=== PATIENT | female | born 1980 | race Caucasian/White ===

== ENCOUNTER → 2020-05-15 | Outpatient (CLI) | payer BC | LOC: RADMAMWWP 16:24 | PROVIDERS: ATTEND Obstetrics & Gynecology | DX: Z53.9 Procedure and treatment not carried out, unspecified reason (principal) ==

== ENCOUNTER → 2021-01-11 | Emergency (ER) | payer BC, OTHER | END | disposition home or self-care (01) | LOC: LABWHC1 14:46 | DX: U07.1 COVID-19 (principal) | CPT/HCPCS: 87635 ==

== ENCOUNTER → 2021-05-12 | Outpatient (CLI) | payer BC ==
[2021-05-12 15:02] LABS: ALT 12 U/L (8-44); AST 16 U/L (13-35); African American GFR (CKD) 100.7 (60.0-200.0); Albumin 4.3 g/dL (3.8-4.9); Albumin/Globulin Ratio 2.07 (1.60-3.17); Alkaline Phosphatase 39 U/L (41-126); BUN/Creat Ratio 21.18 Ratio (12.00-20.00); Carbon Dioxide 21.1 mmol/L (20.0-27.5); Chloride 103 mmol/L (96-109); Chol/HDL Ratio 2.59 Ratio; Globulin 2.1 g/dL (1.6-3.3); Glucose 91 mg/dL (70-110); LDL Cholesterol,Calculated 100.7 mg/dL (0.0-131.0); Non-African American GFR(CKD) 86.9 (60.0-200.0); Potassium 4.1 mmol/L (3.5-5.5); Sodium 135 mmol/L (135-145); Total Protein 6.4 g/dL (6.2-8.2); VLDL Calculation 12.22 mg/dL (5.00-40.00)
== END | disposition home or self-care (01) ==
LOC: LABWHC1 07:48
PROVIDERS: ATTEND Physician Assistant Medical
DX: Z13.228 Encounter for screening for other metabolic disorders (principal); E78.5 Hyperlipidemia, unspecified
CPT/HCPCS: 36415; 80053; 80061; 84443

== ENCOUNTER → 2021-06-18 | Outpatient (CLI) | payer BC ==
--- NOTE | 2021-06-29 11:23 | MM ---
Reason for exam: screening (asymptomatic). Last mammogram was performed 5 years and 10 months ago. History: Family history of breast cancer in 4 paternal aunts and breast cancer in 3 paternal cousins. Took hormonal contraceptives beginning at age 19. Physical Findings: A clinical breast exam by your physician is recommended on an annual basis and results should be correlated with mammographic findings. MG Screening Mammo w CAD Bilateral CC and MLO view(s) were taken. Prior study comparison: August 07, 2015, mammogram, performed at [facility]. The breast tissue is heterogeneously dense. This may lower the sensitivity of mammography. There is no discrete abnormality. ASSESSMENT: Negative, BI-RAD 1 RECOMMENDATION: Routine screening mammogram of both breasts in 1 year. Some consider bilateral ultrasound surveillance in patient with extremely dense fibroglandular tissue.
== END | disposition home or self-care (01) ==
LOC: RADMAMWWP 12:58
PROVIDERS: ATTEND Family Medicine
DX: Z12.31 Encounter for screening mammogram for malignant neoplasm of breast (principal); Z80.3 Family history of malignant neoplasm of breast
CPT/HCPCS: 77067

== ENCOUNTER → 2023-02-16 | Outpatient (CLI) | payer BC ==
[2023-02-16 15:40] LABS: HCT 39.8 % (37.2-46.3); HGB 13.3 g/dL (12.0-15.0); MCH 31.9 pg (27.0-32.0); MCHC 33.4 g/dL (32.0-37.0); MCV 95.4 FL (80.0-97.0); Mean Platelet Volume 11.4 FL (9.5-12.2); NRBC Per 100 WBC 0 X 10*3/uL (0.00-0.01); Platelet Count 211 X 10*3/uL (140-440); RBC 4.17 X 10*6/uL (4.10-5.20); WBC 5.71 X 10*3/uL (4.50-10.00)
== END | disposition home or self-care (01) ==
LOC: LABPAT 12:22
PROVIDERS: ATTEND Urology
DX: N39.3 Stress incontinence (female) (male) (principal); Z01.812 Encounter for preprocedural laboratory examination; N89.3 Dysplasia of vagina, unspecified
CPT/HCPCS: 36415; 85027

== ENCOUNTER 2023-02-22 07:24 | Day surgery (SDC) | payer BC ==
--- NOTE | 2023-02-21 16:07 | P.GSHP ---
History of Present Illness H&P Date: 02/21/23 42 female with grade 2 uma comes for a pubovaginal sling with lynx, plus cystoscopy. The risks complications and alternatives have been discussed understood and accepted including infection, bleeding, pain, injury to adjacent organs, retention, incontinence, dyspareunia, the mesh controversy among others. - Constitutional Constitutional: Denies chills, Denies fever - EENT Eyes: denies blurred vision, denies pain Ears, nose, mouth and throat: Denies headache, Denies sore throat - Cardiovascular Cardiovascular: Denies chest pain, Denies shortness of breath - Respiratory Respiratory: Denies cough, Denies 7 - Gastrointestinal Gastrointestinal: Denies abdominal pain, Denies diarrhea, Denies nausea, Denies vomiting - Genitourinary (Female) Genitourinary: Denies dysuria, Denies hematuria - Genitourinary (Male) Genitourinary: Denies dysuria, Denies hematuria - Musculoskeletal Musculoskeletal: Denies myalgias - Integumentary Integumentary: Denies pruritus, Denies rash - Neurological Neurological: Denies numbness, Denies weakness - Psychiatric Psychiatric: Denies anxiety, Denies depression - Endocrine Endocrine: Denies fatigue, Denies weight change Past Medical History Past Medical History: Hyperlipidemia Additional Past Medical History / Comment(s): nasal congestion- allergies. urine urgency and leakage. back pain. History of Any Multi-Drug Resistant Organisms: None Reported Additional Past Surgical History / Comment(s): bunionectomy. wisdom teeth Past Anesthesia/Blood Transfusion Reactions: No Reported Reaction Smoking Status: Never smoker - Past Family History Father Family Medical History: Cancer Additional Family Medical History / Comment(s): skin cancer- Medications and Allergies Home Medications Medication Instructions Recorded Confirmed Type Unk Glucosamine 1 tab PO DAILY 02/20/23 02/20/23 History valACYclovir HCL [Valtrex] 1,000 mg PO DIRECTED PRN 02/20/23 02/20/23 History Allergies Allergy/AdvReac Type Severity Reaction Status Date / Time No Known Allergies Allergy Verified 02/20/23 15:06 Surgical - Exam - General well developed, well nourished, no distress - Eyes normal ocular movement, no icteric - ENT no hearing loss, no congestion - Neck no masses, trachea midline - Respiratory normal respiratory effort, clear to auscultation - Abdomen Abdomen: soft, non tender, no guarding, no rigid, no rebound - Genitourinary hypermobile urethra with uma - Integumentary no rash, no abnormal pigmentation - Neurologic no disoriented, no combative - Psychiatric oriented to time, oriented to person, oriented to place, speech is normal, memory intact Assessment and Plan Assessment: Impression: uma gd 2 Plan: pubovaginal sling with lynx graft, cysto
[~2023-02-22 07:24] MED LIST: AMPICILLIN 1,000 MG in SODIUM CHLORIDE 0.9% 50 ML IVPB PRN; DEXAMETHASONE SOD PHOSPHATE 4 MG/ML 1 ML VIAL IV ONE; GENTAMICIN 90 MG in SODIUM CHLORIDE 0.9% 100 ML IVPB PRN; HYDROmorphone 0.5 MG/0.5 ML SYRINGE IVP PRN; ONDANSETRON 4 MG/2 ML VIAL IVP ONE
[2023-02-22] MEDS: LACTATED RINGERS 1,000 ML IV SCH (07:37)
[2023-02-22] MEDS ORDERED: LIDOCAINE 1% INJ 10MG/ML (20 ML MDV) ONE (08:24)
[2023-02-22] MEDS ORDERED: MIDAZOLAM 2 MG/2 ML VIAL ONE (08:24)
[2023-02-22] MEDS ORDERED: fentaNYL (PF) 50 MCG/ML 2 ML AMP ONE (08:24)
[2023-02-22] MEDS ORDERED: PROPOFOL 10 MG/ML 20 ML VIAL IV ONE (08:24)
[2023-02-22] MEDS ORDERED: VASOPRESSIN 20 UNIT/ML 1 ML VIAL SQ ONE ×2 (08:28→08:45)
[2023-02-22] MEDS ORDERED: GENTAMICIN 80 MG in SODIUM CHLORIDE 0.9% 500 ML 500 ML IRRIGATION ONE (08:52)
[2023-02-22] MEDS ORDERED: ONDANSETRON 4 MG/2 ML VIAL IVP PRN (09:09)
--- NOTE | 2023-02-22 09:14 | P.OP ---
Date of Procedure: 02/22/23 Preoperative Diagnosis: Stress urinary incontinence Postoperative Diagnosis: Same Procedure(s) Performed: Pubovaginal sling with Lynx graft, cystoscopy Anesthesia: ALYA Surgeon: Navneet Casarez Estimated Blood Loss (ml): 200 Pathology: none sent Condition: stable Disposition: PACU Indications for Procedure: The patient is 42. She has stress incontinence. Her Valsalva pressures are high. She comes for a pubovaginal sling with Lynx graft Description of Procedure: Patient brought to the operating suite. Given a general anesthetic. Placed lithotomy position with a sterile prep and drape. The labia are sewn laterally to silk. A Berrios catheters introduced sterilely. Vaginal speculum was placed. A midline suburethral incision is made after 10 mL of a mixture of 20 g of Pitressin and 200 mL saline was administered. Set lateral the bladder neck bilaterally. I penetrate the endopelvic fascia bilaterally. I make 2 incisions at the corner of the pubis. I passed the graft introducers retropubically into the vaginal space bilaterally. I performed cystoscopy to make sure there is no injury to the bladder and there is none. I attached the grafted introducers and pull it back suprapubically. It lay nicely at the bladder neck. I closed the vaginal space with running locking 2-0 Vicryl. I excised redundant graft at the suprapubic incision and close the skin with 4-0 Monocryl. A vaginal pack is place. The labial stitches are removed. The urine remains clear. The patient is awakened and returned recovery room in good condition. Blood loss is about 200 mL. He will be admitted to the hospital postoperatively.
[2023-02-22] MEDS: KETOROLAC 15 MG/ML 1 ML VIAL IVP PRN ×3 (09:52→21:18)
[2023-02-22] MEDS: HYDROcodone/APAP 5-325MG 1 EACH TAB PO PRN ×2 (12:44→18:26)
[2023-02-22] MEDS: DEXTROSE 5%-0.45% NACL 1,000 ML IV SCH (12:44)
[2023-02-23] MEDS: HYDROcodone/APAP 5-325MG 1 EACH TAB PO PRN ×2 (00:30→06:27)
[2023-02-23] MEDS: DEXTROSE 5%-0.45% NACL 1,000 ML IV SCH (04:10)
[2023-02-23] MEDS: KETOROLAC 15 MG/ML 1 ML VIAL IVP PRN (04:17)
[2023-02-23] MEDS: LACTATED RINGERS 1,000 ML IV SCH (07:56)
[2023-02-23 10:04] VITALS: BP 102/66; PULSE 70; RESP 15; TEMP 98.4
--- NOTE | 2023-02-23 10:59 | P.DS ---
Providers Expected date of discharge: 02/23/23 Attending physician: Navneet Casarez Primary care physician: [facility] Course: On the day of admission, the patient underwent an uncomplicated Lynx pubovaginal sling. The perioperative course was unremarkable. On the first postoperative day, she was comfortable. She was afebrile with stable vital signs. The Berrios catheter was removed, and she was able to void without difficulty. Bladder scan verified adequate bladder emptying. On examination, the incisions were clean and dry. Procedures: Lynx Pubovaginal Sling on 02/22/2023. Patient Condition at Discharge: Good Plan - Discharge Summary Discharge Rx Participant: No New Discharge Prescriptions: New Cephalexin [Keflex] 500 mg PO Q8HR 3 Days #9 cap Ketorolac [Toradol] 10 mg PO Q6HR PRN #10 tab PRN Reason: Mild To Moderate Pain (1 - 6) HYDROcodone/APAP 5-325MG [[place] 5-325] 1 - 2 tab PO Q6HR PRN #6 tab PRN Reason: Severe Pain (Scale 7 To 10) No Action valACYclovir HCL [Valtrex] 1,000 mg PO DIRECTED PRN PRN Reason: Cold Sores Unk Glucosamine 1 tab PO DAILY Discharge Medication List Unk Glucosamine 1 tab PO DAILY 02/20/23 [History] valACYclovir HCL [Valtrex] 1,000 mg PO DIRECTED PRN 02/20/23 [History] Cephalexin [Keflex] 500 mg PO Q8HR 3 Days #9 cap 02/23/23 [Rx] HYDROcodone/APAP 5-325MG [[place] 5-325] 1 - 2 tab PO Q6HR PRN #6 tab 02/23/23 [Rx] Ketorolac [Toradol] 10 mg PO Q6HR PRN #10 tab 02/23/23 [Rx] Follow up Appointment(s)/Referral(s): Navneet Casarez MD [STAFF PHYSICIAN] - 1 Week Activity/Diet/Wound Care/Special Instructions: Okay to shower. No lifting or strenuous activity. No sexual intercourse. Discharge Disposition: HOME SELF-CARE
== END 2023-02-23 11:10 | disposition home or self-care (01) ==
LOC: OR 07:24 → 4FBP 09:13 → OR 02-23 11:10
PROVIDERS: ATTEND Urology
DX: N39.3 Stress incontinence (female) (male) (principal); Z80.0 Family history of malignant neoplasm of digestive organs; Z79.899 Other long term (current) drug therapy
CPT/HCPCS: 81025; 57288; C1771; J1580 ×2; J1100; J2405; J0290; J1885 ×2; J1170